=== PATIENT | male | born 1980 | race Hispanic/Latino ===

== ENCOUNTER 2016-08-09 15:41 | Emergency (ER) | payer OTHER ==
[~2016-08-09] VITALS: Ht 152.4 cm; Wt 71.0 kg
[2016-08-09 16:25] VITALS: BP 122/79
== END 2016-08-09 16:25 | disposition home or self-care (01) | DRG 115 ==
LOC: ED 15:41
PROC: 08CTXZZ Extirpation of Matter from Left Conjunctiva, External Approach (ICD-10-PCS; principal; 2016-08-09)
DX: T15.12XA Foreign body in conjunctival sac, left eye, initial encounter (principal); H10.89 Other conjunctivitis; X58.XXXA Exposure to other specified factors, initial encounter; Y92.89 Other specified places as the place of occurrence of the external cause

== ENCOUNTER 2020-09-22 13:13 | Emergency (ER) | payer SELFPAY ==
[~2020-09-22] VITALS: Ht 152.4 cm; Wt 80.0 kg
[2020-09-22] MEDS ORDERED: MEDDOSEPAK PO (13:35)
[2020-09-22 13:45] VITALS: BP 150/84
== END 2020-09-22 13:45 | disposition home or self-care (01) | DRG 607 ==
LOC: ED 13:13
DX: R21 Rash and other nonspecific skin eruption (principal); X58.XXXA Exposure to other specified factors, initial encounter; Y93.89 Activity, other specified; Y92.89 Other specified places as the place of occurrence of the external cause; Y99.0 Civilian activity done for income or pay